=== PATIENT | female | born 1960 | race Caucasian/White ===

== ENCOUNTER 2024-02-02 20:59 | Emergency (ER) | payer OTHER, SELFPAY ==
[2024-02-02 21:01] VITALS: BP 154/92
[2024-02-02 21:24] LABS: % Basophils 0.7 % (0-2); % Eosinophils 1.8 % (0-6); % Immature Granulocytes 0.4 % (0-0.5); % Lymphocytes 29.7 % (20.5-51.1); % Monocytes 8.5 % (1.7-9.3); % Neutrophils 58.9 % (42.2-75.2); Absolute Basophils 0.1 10^3/uL (0-0.2); Absolute Eosinophils 0.2 10^3/uL (0-0.7); Absolute Lymphocytes 2.4 10^3/uL (1.2-3.4); Absolute Monocytes 0.7 10^3/uL (0.1-0.6); Absolute Neutrophils 4.8 10^3/uL (1.4-6.5); Hematocrit 32.4 % (37.0-47.0); Hemoglobin 11.1 g/dL (12.0-16.0); Mean Corp Hgb Conc. 34.3 g/dL (33.0-37.0); Mean Corpuscular Hgb 30.5 pg (27.0-31.0); Mean Platelet Volume 9.4 fL (7.4-10.4); Nucleated Red Blood Cells % 0 %; Platelet Count 192 10^3/uL (130-400); Red Blood Cell Count 3.64 10^6/uL (4.20-5.40); Red Cell Dist. Width 12.8 % (11.5-14.5); White Blood Cell Count 8.1 10^3/uL (4.8-10.8)
[2024-02-02 21:48] VITALS: BP 135/82
[2024-02-02 21:50] LABS: ALT (SGPT) 17 U/L (0-35); AST (SGOT) 31 U/L (14-36); Albumin 4.3 g/dl (3.5-5.0); Alkaline Phosphatase 73 U/L (38-126); Blood Urea Nitrogen 25 mg/dl (7-17); Calcium 9.1 mg/dl (8.4-10.2); Carbon Dioxide 29 mmol/L (22-30); Chloride 99 mmol/L (98-107); Glucose 78 mg/dl (70-99); Potassium 3.9 mmol/L (3.5-5.1); Sodium 136 mmol/L (135-145); Total Bilirubin 0.5 mg/dl (0.2-1.3); Total Protein 7.1 g/dl (6.3-8.2); eGFR > 60.00
[2024-02-02 21:58] LABS: Troponin I < 0.012 ng/ml
[2024-02-02 22:00] VITALS: BP 133/80
[2024-02-02 23:00] VITALS: BP 122/72
--- NOTE | 2024-02-02 23:12 | ED.GENMED ---
History of Present Illness
General
Chief Complaint: Cardiac Symptoms
Source: patient, previous radiology exam and previous hospital records (Unremarkable exercise stress test 2018.)
Exam Limitations: none
Time Seen by Provider: 02/02/24 22:58
Nursing documentation reviewed up to this point in time: agreed with
History of Present Illness
History of Present Illness:
This is a 63-year-old woman who has history of Sjogren syndrome chronically maintained on Plaquenil and prednisone 4 mg daily. History of GERD, obstructive sleep apnea, remote history of pericarditis perhaps 10 years ago, pleural effusion, remote
history of melanoma skin cancer removed from posterior thorax. No history of recurrence.
She complains of at least 2-week history of intermittent substernal chest discomfort, sporadic in nature but increased episodes over the past week and more more noticeable today while on a hike in a park. Chest pain occasionally radiated to her
left shoulder but no arm pain, no shortness of breath or cough, no palpitations, no dizziness or lightheadedness. Chest pain seem to worsen after her hike, worsened after she lie down to take a nap and upon lying down she developed some nausea as
well without vomiting.
Due to persistence and worsening of symptoms she presented to urgent care, was given 324 mg chewable aspirin and sent to the ED for further evaluation.
She does have remote history of pericarditis perhaps 10 years ago but admits that current chest pain is quite different from that episode 10 years ago. She has not had a fever or chills, no URI symptoms. No leg pain or swelling. No recent travel.
Has been chest pain-free since arrival to the ED.
She follows with Dr. Martinez and underwent unremarkable exercise stress test 2018.
Past History
Past History
ED Past Medical History: Cancer (Melanoma of posterior thorax.), GERD, Other (Sjogren syndrome, maintained on Plaquenil, prednisone 4 mg daily.) and Other (Obstructive sleep apnea, history of pericarditis 2013, pneumonia, pleural effusion,
diverticulitis, migraine headaches, anemia)
ED Past Surgical History: Gynecological (Breast biopsy 1993) and Other (Melanoma/skin cancer removal from thorax)
Social History
Tobacco: Non-smoker
Alcohol: None
Personal:
Living: with family
Employment: Retired
Family History
Family History: Other (Noncontributory)
Phy Exam
Physical Exam
Physical Exam:
GENERAL: 63-year-old woman appears her stated age, bright and alert, pleasant, appears in no acute distress. Accompanied by her .
EYE: anicteric
NECK: Supple, nontender, no meningismus, no significant adenopathy. No JVD.
ENT: oral mucosa is moist. No rhinorrhea.
CARDIAC: Regular rate and rhythm. no murmur. No rub.
LUNGS: Clear breath sounds bilaterally, no acute respiratory distress, no wheezes/rales/rhonchi
ABDOMEN: Soft, nondistended, without focal tenderness, no r/g, no cvat. normoactive BS.
NEUROLOGICAL: Alert and oriented x3, no focal neuro deficits.
SKIN: Warm and dry, normal color, skin intact. No rash. There is very minimal erythema superior posterior/inferior neck at sun exposed area of neck. Nontender.
MUSCULOSKELETAL: No C/C/E. peripheral pulses are full and equal b/l. No palpable tenderness.
PSYCH: Normal and appropriate interaction.
Scores
Heart Score for Chest Pain Patients
STEMI patient?: No
History: Moderately Suspicious
ECG: Normal
Age: >45 - <65 years
Risk Factors: No Risk Factors
Troponin: </= Normal Limit
Heart Score for Chest Pain Patients: 2
Heart Score Risk: 2.5% MACE over next 6 weeks
Course
Orders/Labs/Results
Orders:
Orders
02/02/24 21:04
ECG [Electrocardiogram (*1)] Urgent
Reason for Study: Other
Other Reason for Exam: cardiac symptoms
CR Chest - 2 Views Urgent
Comment:
Reason For Exam: cardiac symptoms
02/02/24 21:05
EKG- Treatment ONCE
02/02/24 21:18
Complete Blood Count/With Diff Urgent
Comprehensive Metabolic Panel Urgent
Troponin I Urgent
02/02/24 23:12
Electrocardiogram (*1) Urgent
Reason for Study: Chest Pain
Other Reason for Exam: repeat with troponin
EKG- Treatment ONCE
02/02/24 23:28
Troponin I Urgent
Abnormal Lab Results
02/02/24
21:18
RBC 3.64 L 10^6/uL
(4.20-5.40)
Hgb 11.1 L g/dL
(12.0-16.0)
Hct 32.4 L %
(37.0-47.0)
Absolute Monos (auto) 0.7 H 10^3/uL
(0.1-0.6)
BUN 25 H mg/dl
(7-17)
02/02/24 21:18
02/02/24 21:18
Vital Signs
Initial and Last Documented VS:
Initial Vital Signs
Temp Pulse Resp BP Pulse Ox
98.3 F 73 20 154/92 98
02/02/24 21:01 02/02/24 21:01 02/02/24 21:01 02/02/24 21:01 02/02/24 21:01
Last Documented Vital Signs
Temp Pulse Resp BP Pulse Ox
98.3 F 72 19 122/72 99
02/02/24 21:01 02/02/24 23:00 02/02/24 23:00 02/02/24 23:00 02/02/24 23:00
MDM/Problems Addressed
Differential Diagnosis Includes:
Concern for ACS, GERD, chest wall pain, pericarditis, pleural effusion, less likely pneumonia.
No prior history of thromboembolism nor risk factors for such.
No history of CAD and has undergone unremarkable echocardiogram, stress test 2018.
EKG appears similar to previous 2020. No evidence of acute ischemia.
Chest x-ray shows borderline cardiomegaly otherwise unremarkable. No pleural effusion.
History, exam and EKG did not consistent with pericarditis and patient admits that current pain is quite different from previous episode of pericarditis.
Thus far labs are unremarkable. Negative troponin. Will plan to repeat troponin and if this remains negative we will plan to discharge to home with recommendations for follow-up with her primary mail list processor, Dr. Martinez.
Chronic conditions affecting care: Immunosuppressed (Chronically maintained on Plaquenil, prednisone 4 mg daily)
*Radiology
Radiology exam reviewed: radiology read reviewed (Chest x-ray shows borderline cardiomegaly otherwise unremarkable, clear lung fuentes. No evidence of pleural effusion.)
*Pulse Oximetry
Patient hypoxic: no
*EKG
Interpreted by ED Provider?: Yes
Comparison EKG: changes noted (Unchanged from previous 2020)
Rate: normal
Rhythm: sinus
[place]: normal axis
Interval: normal interval
QRS Pattern: normal QRS and other
Ischemia: T-wave inversion (Flipped T waves in 3, similar and unchanged from previous 2020)
*[employer] Interpretation
Rate: normal
Interpretation: normal
Rhythm: sinus
*Critical Care Note
Total Time (30-74mins, 75-104mins- exclusive of procedures): Not Applicable
Update Note
Update Note:
Patient remains chest pain-free and comfortable.
Repeat EKG unremarkable and unchanged from previous.
Repeat troponin remains flat.
Will discharge to home with recommendation for follow-up with her primary mail list processor, Dr. Martinez. Referred to chest pain hotline/[facility] cardiology.
Return precautions discussed.
ED Attending Note
-
Portions of this chart may have been created with voice recognition software.� Occasional wrong word or��sound alike� substitutions may have occurred due to the inherent limitations of voice recognition software.
Discharge Plan
Departure
Patient Disposition: Home (Routine Discharge)
Date of Disposition: 02/03/24
Time of Disposition: 00:14
Patient with high blood pressure during this ER visit?: No
Condition: Good
Discharge Problem:
Acute nonspecific chest pain with low risk of coronary artery disease
Instructions: Chest Pain CBC Follow Up
Prescriptions:
No Action
hydroxychloroquine 200 MG tablet
200 mg PO DAILY
cyclosporine [Restasis] 0.4 ML dropperette
1 drp BOTH EYES DAILY
pilocarpine HCl 5 MG tablet
1 tab PO DAILY
methylprednisolone 4 MG tablet
4 mg PO DAILY
acetaminophen [Tylenol Ex Str Arthritis Pain] 500 MG tablet
2 tab PO PRN PRN (Reason: pain)
calcium carbonate 600 MG tablet
600 mg PO DAILY
ascorbic acid (vitamin C) [Vitamin C] 500 MG tablet
1,000 mg PO DAILY
zolpidem 5 MG tablet
5 mg PO HSPRN PRN (Reason: insomnia)
PROLIA:
IM Q6M
tramadol 50 MG tablet
25 mg PO Q6HPRN PRN (Reason: moderate pain) 0RF
hydrocodone-acetaminophen 1 TABLET tablet
1 tab PO Q4HPRN PRN (Reason: moderate to severe pain) Qty: 25 0RF
Referrals:
Jamie Reynolds DO [Family Provider] -
Interventions
Interventions:
*Risk Screen - Suicide Last Done: 02/02/24 21:01
*General Assessment Last Done: 02/02/24 21:01
*Neglect/Abuse Screening Last Done: 02/02/24 21:01
ED- Pulmonary Assessment Last Done: 02/02/24 22:30
ED- Cardiac Assessment Last Done: 02/02/24 22:30
Discharge Date and Time
Print Language: JAPANESE
[2024-02-03] VITALS: BP 114/72
[2024-02-03] LABS: Troponin I < 0.012 ng/ml
== END 2024-02-03 00:48 | disposition home or self-care (01) ==
LOC: EMR 20:59
PROVIDERS: Emergency Medicine; EMERGENCY PHYSICIAN Emergency Medicine; FAMILY PHYSICIAN Family Medicine
DX: R07.89 Other chest pain (principal)
CPT/HCPCS: 99285; 71046; 80053; 84484; 85025; 93005

== ENCOUNTER → 2024-03-10 07:33 | Outpatient (REF) | payer OTHER, SELFPAY | LOC: DHCBC/DCA 07:33 | PROVIDERS: ATTENDING PHYSICIAN Nurse Practitioner Gerontology; FAMILY PHYSICIAN Family Medicine | DX: R07.89 Other chest pain (principal); I25.10 Atherosclerotic heart disease of native coronary artery without angina pectoris; M35.00 Sjogren syndrome, unspecified | CPT/HCPCS: 78452; 93017; A9500 ==

== ENCOUNTER → 2024-03-21 09:37 | Outpatient (REF) | payer OTHER, SELFPAY | LOC: RCS 09:37 | PROVIDERS: ATTENDING PHYSICIAN Nurse Practitioner Gerontology; FAMILY PHYSICIAN Family Medicine | DX: R07.89 Other chest pain (principal) | CPT/HCPCS: 93306 ==